=== PATIENT | female | born 1975 | race Caucasian/White ===

== ENCOUNTER 2018-06-22 07:40 | Emergency (ER) | payer MEDICAID ==
[~2018-06-22] VITALS: Ht 180.3 cm; Wt 95.0 kg
[2018-06-22 07:43] VITALS: BP 146/88; PULSE 92; RESP 18; Ht 180.3 cm; Wt 95.0 kg
[2018-06-22] MEDS ORDERED: ACET500C5 PO (08:58)
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
== END 2018-06-22 09:32 | disposition home or self-care (01) ==
LOC: FTE 07:40
DX: M54.2 Cervicalgia (principal)
CPT/HCPCS: 70450; 72125; 81025; Z7502

== ENCOUNTER 2018-07-24 16:04 | Emergency (ER) | payer SELFPAY ==
[~2018-07-24] VITALS: Ht 167.6 cm; Wt 100.0 kg
[~2018-07-24 16:04] MED LIST: ACET500C5 PO
[2018-07-24 16:11] VITALS: BP 162/92; PULSE 66; RESP 18; Ht 167.6 cm; Wt 100.0 kg
== END 2018-07-24 17:08 | disposition left against medical advice (07) ==
LOC: FTE 16:04
DX: Z53.21 Procedure and treatment not carried out due to patient leaving prior to being seen by health care provider (principal)